=== PATIENT | female | born 1985 | race Caucasian/White ===

== ENCOUNTER 2019-05-16 07:42 | Day surgery (SDC) | payer OTHER ==
[2019-05-16 08:31] LABS: ADD MAN DIFF? NO
[2019-05-16 08:33] LABS: BASOPHILS % 0.9 % (0.0-2.0); EOSINOPHILS # 0.1 10^3/ul (0.0-0.5); EOSINOPHILS % 1.2 % (0.0-7.0); HEMATOCRIT 39.6 % (37.0-47.0); HEMOGLOBIN 12.6 g/dl (12.0-16.0); LYMPHOCYTES # 1.4 10^3/ul (0.8-2.9); LYMPHOCYTES % 32.6 % (15.0-51.0); MEAN CORPUSCULAR HGB CONC 31.8 g/dl (32.0-37.0); MEAN CORPUSCULAR VOLUME 91.2 fl (82.0-101.0); MEAN PLATELET VOLUME 9.2 fl (7.4-10.4); MONOCYTE # 0.5 10^3/ul (0.3-0.9); MONOCYTES % 12.1 % (0.0-11.0); NEUTROPHIL # 2.3 10^3/ul (1.6-7.5); PLATELET COUNT 268 10^3/UL (140-415); RED BLOOD COUNT 4.34 10^6/ul (4.20-5.40); RED CELL DISTRIBUTION WIDTH 13.2 % (11.5-14.5)
[2019-05-16 08:33] LABS: WHITE BLOOD COUNT 4.3 10^3/ul (4.8-10.8)
[2019-05-16 08:37] LABS: HOLD TRANSMISSIONS 1
[2019-05-16 08:49] LABS: ALANINE AMINOTRANSFERASE 37 IU/L (13-69); ALBUMIN 4.1 g/dl (3.3-4.9); ALBUMIN/GLOBULIN RATIO 1.32; ALKALINE PHOSPHATASE 42 IU/L (42-121); ANION GAP 7 (5-13); ASPARTATE AMINO TRANSFERASE 40 IU/L (15-46); BILIRUBIN,INDIRECT 0.3 mg/dl (0-1.1); BILIRUBIN,TOTAL 0.3 mg/dl (0.2-1.3); BLOOD UREA NITROGEN 10 mg/dl (7-20); CALCIUM 8.9 mg/dl (8.4-10.2); CARBON DIOXIDE 28 mmol/L (21-31); CHLORIDE 107 mmol/L (97-110); CREATININE 0.68 mg/dl (0.44-1.00); Estimated GFR > 60 mL/min (>60); GLUCOSE 105 mg/dl (70-220); POTASSIUM 4.4 mmol/L (3.5-5.1); SODIUM 142 mmol/L (135-144); TOTAL PROTEIN 7.2 g/dl (6.1-8.1)
[2019-05-16 08:57] LABS: INR 0.89; PROTIME 12.1 Sec (11.9-14.9); PT RATIO 0.9
[2019-05-16 08:58] LABS: PARTIAL THROMBOPLASTIN TIME 29.3 Sec (23.0-35.0)
[2019-05-16] MEDS ORDERED: PROPOFOL 20 ML (09:11)
[2019-05-16] MEDS ORDERED: SUCCINYLCHOLINE CHLORIDE 100 MG/5 ML SYG IV (09:11)
[2019-05-16] MEDS ORDERED: MIDAZOLAM 1 MG/ML 2 ML INJ (09:11)
[2019-05-16] MEDS ORDERED: DEXAMETHASONE 4 MG/ML 5 ML INJ (09:28)
[2019-05-16] MEDS ORDERED: ONDANSETRON 4 MG INJ (09:28)
[2019-05-16] MEDS ORDERED: CEFAZOLIN 1 GM INJ (09:34)
[2019-05-16] MEDS: LIDOCAINE 2% (MDV) 20 ML INJ (10:45)
[2019-05-16] MEDS: BUPIVACAINE 0.5% (SDV) 30 ML INJ (10:45)
[2019-05-16] MEDS ORDERED: HYDROCODONE/APAP (5/325) TAB PO (11:00)
== END 2019-05-16 12:00 | disposition home or self-care (01) ==
LOC: SDS 07:42
DX: L72.0 Epidermal cyst (principal)
CPT/HCPCS: 14021; 80053; 85025; 85610; 85730; 88307